=== PATIENT | male | born 1940 | race Caucasian/White ===

== ENCOUNTER → 2016-07-07 | Outpatient (REF) ==
[~2016-07-07] MED LIST: CALCIUM 600 + V1 TA1 PO; CALCIUM VITAMIN D PO; CELLCEPT 250MG250 MG PO; CIPRO 500MG TA500 MG PO; DOXYCYCLINE 10100 MG PO; EPITOL; FLOMAX 0.40.4 MG/CAP PO; LASIX 40MG TABL40 MG PO; LEVEMIR FLEX100 U/ML SQ; LEVEMIR FLEXPEN SQ; LEXAPRO 10MG10 MG PO; LIORESAL 1010 MG/TAB PO; LOPRESSOR 225 MG/TAB PO; MUCINEX 60600 MG/TA1 PO; MYFORTIC180 MG PO; NASAL SPRAY 1515 ML; NEURONTIN300 MG/CAP PO; NORCO 325 MG-51 TAB PO; NORVASC 10MG10 MG PO; NOVOLOG FLEX100 U/ML SQ; PERCOCET 325 MG1 TA2 PO; PRIL40 PO; PROAIR HFA0.09 MG/AC IH; PROSCAR 5MG5 MG PO; PROTONIX 40MG T40 MG PO; PYRIDIUM 100MG100 MG PO; RAPAMUNE1 MG PO; TEGRETOL 2200 MG/TA1 PO; VITAMIN D 1001000 IU PO; VITAMIN D 400400 IU PO; ZYLOPRIM 300MG300 MG PO; ZYRTEC 10MG10 MG PO
== END ==
LOC: ZLAB.WCH 15:59
DX: Z01.89 Encounter for other specified special examinations (principal)

== ENCOUNTER → 2016-09-24 | Outpatient (REF) | LOC: ZLAB.WCH 14:47 | DX: Z01.89 Encounter for other specified special examinations (principal) ==

== ENCOUNTER → 2016-11-05 | Outpatient (REF) | LOC: ZLAB.WCH 10:38 | DX: Z01.89 Encounter for other specified special examinations (principal) ==

== ENCOUNTER → 2016-12-28 | Outpatient (CLI) | payer MEDICARE, OTHER | LOC: SUN.DIA 09:15 | DX: E11.40 Type 2 diabetes mellitus with diabetic neuropathy, unspecified (principal); Z79.4 Long term (current) use of insulin; E78.5 Hyperlipidemia, unspecified; I10 Essential (primary) hypertension; E66.9 Obesity, unspecified; Z68.35 Body mass index [BMI] 35.0-35.9, adult; Z71.3 Dietary counseling and surveillance; Z87.891 Personal history of nicotine dependence | CPT/HCPCS: G0108 ==

== ENCOUNTER → 2017-01-12 | Outpatient (CLI) | payer MEDICARE, OTHER | LOC: SUN.DIA 13:10 | DX: E11.40 Type 2 diabetes mellitus with diabetic neuropathy, unspecified (principal); Z79.4 Long term (current) use of insulin; E78.5 Hyperlipidemia, unspecified; I10 Essential (primary) hypertension; E66.9 Obesity, unspecified; Z68.35 Body mass index [BMI] 35.0-35.9, adult; Z71.3 Dietary counseling and surveillance ==

== ENCOUNTER → 2017-02-17 | Outpatient (REF) | LOC: ZLAB.WCH 15:54 | DX: Z01.89 Encounter for other specified special examinations (principal) ==

== ENCOUNTER → 2017-03-16 | Outpatient (CLI) | payer MEDICARE, OTHER | LOC: SUN.DIA 10:33 | DX: E11.40 Type 2 diabetes mellitus with diabetic neuropathy, unspecified (principal); Z79.4 Long term (current) use of insulin; E78.5 Hyperlipidemia, unspecified; I10 Essential (primary) hypertension; E66.9 Obesity, unspecified; Z68.35 Body mass index [BMI] 35.0-35.9, adult; Z71.3 Dietary counseling and surveillance ==

== ENCOUNTER → 2017-05-26 | Outpatient (REF) | LOC: ZLAB.WCH 18:06 | DX: Z01.89 Encounter for other specified special examinations (principal) ==

== ENCOUNTER → 2017-07-06 | Outpatient (REF) | LOC: ZLAB.WCH 18:01 | DX: Z01.89 Encounter for other specified special examinations (principal) ==

== ENCOUNTER → 2017-08-12 | Outpatient (REF) | LOC: ZLAB.WCH 17:52 | DX: Z01.89 Encounter for other specified special examinations (principal) ==

== ENCOUNTER → 2017-09-08 | Outpatient (REF) | LOC: ZLAB.WCH 15:39 | DX: Z01.89 Encounter for other specified special examinations (principal) ==

== ENCOUNTER → 2017-10-05 | Outpatient (REF) | LOC: ZLAB.WCH 16:02 | DX: Z01.89 Encounter for other specified special examinations (principal) ==

== ENCOUNTER → 2017-11-03 | Outpatient (REF) | LOC: ZLAB.WCH 15:46 | DX: Z01.89 Encounter for other specified special examinations (principal) ==

== ENCOUNTER → 2018-01-25 | Outpatient (REF) | LOC: ZLAB.WCH 16:14 | DX: Z01.89 Encounter for other specified special examinations (principal) ==